=== PATIENT | female | born 1945 | race Caucasian/White ===

== ENCOUNTER → 2019-09-28 14:34 | Outpatient (CLI) | payer MEDICARE, SELFPAY ==
--- NOTE | 2019-09-28 14:43 | RAD_ITS ---
STUDY: X-RAY - RIGHT KNEE REASON FOR EXAM: Female, 74 years old. pain TECHNIQUE: 4 view(s) of the knee. COMPARISON: None. FINDINGS: Normal visualized distal femur. Normal visualized proximal tibia and fibula. Normal proximal tibiofibular articulation. There is mild degenerative arthrosis of the medial femorotibial compartment. There is moderate degenerative arthrosis of the lateral femorotibial compartment with moderate joint space narrowing. Normal patellofemoral articulation. The soft tissue structures are unremarkable. RAD/Knee 4 or More Views IMPRESSION: Bicompartmental osteoarthritis as described. Electronically Signed: Lee Serrato MD at 18:08 EDT Tel , Service support ,
--- NOTE | 2019-09-28 14:43 | RAD_ITS ---
STUDY: X-RAY - LEFT SHOULDER REASON FOR EXAM: Female, 74 years old. pain TECHNIQUE: 4 view(s) of the shoulder. COMPARISON: None. FINDINGS: Normal glenohumeral articulation. Normal acromioclavicular joint. Normal acromion. Narrowing of the acromiohumeral interval implies underlying rotator cuff pathology. Normal humeral head and visualized proximal humerus. The soft tissue structures are unremarkable. Normal visualized pulmonary apex. Remote left rib trauma. RAD/Shoulder min 2 Views IMPRESSION: Narrowing of the acromiohumeral interval implies underlying rotator cuff pathology. Electronically Signed: Lee Serrato MD at 18:09 EDT Tel , Service support ,
--- NOTE | 2019-09-28 14:43 | RAD_ITS ---
STUDY: X-RAY - LEFT KNEE REASON FOR EXAM: Female, 74 years old. pain TECHNIQUE: 4 view(s) of the knee. COMPARISON: None. FINDINGS: Normal visualized distal femur. Normal visualized proximal tibia and fibula. Normal proximal tibiofibular articulation. There is severe degenerative arthrosis of the medial femorotibial compartment with severe joint space narrowing. Normal lateral femorotibial compartment. Normal patellofemoral articulation. The soft tissue structures are unremarkable. RAD/Knee 4 or More Views IMPRESSION: Severe medial compartment osteoarthritis. Electronically Signed: Lee Serrato MD at 18:06 EDT Tel , Service support ,
--- NOTE | 2019-09-28 14:43 | RAD_ITS ---
STUDY: X-RAY - RIGHT SHOULDER REASON FOR EXAM: Female, 74 years old. pain TECHNIQUE: 4 view(s) of the shoulder. COMPARISON: None. FINDINGS: Normal glenohumeral articulation. Normal acromioclavicular joint. Normal acromion. Normal humeral head and visualized proximal humerus. The soft tissue structures are unremarkable. Normal visualized pulmonary apex. RAD/Shoulder min 2 Views IMPRESSION: Normal x-ray examination of the shoulder. Electronically Signed: Lee Serrato MD at 18:07 EDT Tel , Service support ,
[2019-09-28 17:50] LABS: Absolute Lymphocyte Count 2.14 X10^3/uL (0.83-4.51); Absolute Neutrophil Count 3.1 X10^3/uL (2.0-7.7); Basophil# 0.03 X10^3/uL; Basophil% 0.5 % (0-1); Eosinophil# 0.04 X10^3/uL; Eosinophils% 0.7 % (0-5); Hematocrit 38.4 % (37-47); Hemoglobin 12.2 g/dL (12.0-15.0); Lymphocyte # 2.14 X10^3/ul (4.0); Lymphocyte % 36.6 % (19-41); Mean Corp Hgb Conc 31.8 g/dL (32-36); Mean Corpuscular Hgb 29.8 pg (27.0-32.0); Mean Corpuscular Volume 93.9 fL (81-99); Mean Platelet Vol. 11.3 fl (6.2-12.0); Monocyte% 8.5 % (0-10); NRBC Flagged by Analyzer 0 % (0-5); Neutrophil # 3.14 X10^3/uL (2.7-7.7); Neutrophil % 53.7 % (47-70); Platelet Count 209 K/mm3 (150-450); RBC Distribution Width CV 13.1 % (11.6-14.6); RBC Distribution Width SD 45.2 fl (35.1-43.9); Red Blood Count 4.09 M/mm3 (4.2-5.4); White Blood Count 5.9 K/mm3 (4.4-11.0)
[2019-09-28 17:52] LABS: Erythrocyte Sedimentation Rate 9 mm/hr (0-30)
[2019-09-28 18:09] LABS: ALB/GLOB Ratio 1.1 RATIO (0.9-2.4); AST(SGOT) 19 U/L (15-37); Alanine Aminotransfer ALT/SGPT 22 U/L (13-56); Alkaline Phosphatase 96 U/L (45-117); Anion Gap 9 (5-15); BUN 25 mg/dL (7-18); BUN/Creat Ratio 29.7 RATIO (10-20); CRP 2.93 mg/L (0.0-3.0); Calcium,Total 9.2 mg/dL (8.5-10.1); Chloride 103 mmol/L (98-107); Creatinine, Serum 0.84 mg/dL (0.55-1.02); EST Glomerular Filtration Rate 70 mL/min (>60); Est Glom Filt Rate - Afr Amer 84 mL/min (>60); Globulin 3.6 g/dL (2.2-4.2); Glucose 83 mg/dL (74-106); Protein, Total 7.6 g/dL (6.4-8.2); Rheumatoid Factor < 10.0 IU/mL (<15); Sodium Level 138 mmol/L (136-145)
[2019-10-01 12:37] LABS: CCP IgG Antibodies 7 units (0-19)
== END ==
PROVIDERS: Referring Provider Internal Medicine Rheumatology; Visit Provider Internal Medicine Rheumatology
DX: M47.892 Other spondylosis, cervical region (principal); M50.30 Other cervical disc degeneration, unspecified cervical region; M17.0 Bilateral primary osteoarthritis of knee; M21.41 Flat foot [pes planus] (acquired), right foot; I87.2 Venous insufficiency (chronic) (peripheral)
CPT/HCPCS: 36415; 73030; 73564; 80053; 85025; 85652; 86140; 86200; 86431

== ENCOUNTER → 2019-11-29 15:52 | Outpatient (CLI) | payer MEDICARE, SELFPAY ==
--- NOTE | 2019-11-29 15:55 | RAD_ITS ---
STUDY: X-RAY - CERVICAL SPINE REASON FOR EXAM: Female, 74 years old. NECK AND ARM PAIN TECHNIQUE: 5 view(s) of the cervical spine were obtained. COMPARISON: None FINDINGS: Normal anterior atlantoaxial articulation. Normal odontoid process. There is straightening of the normal cervical lordosis. There is multi-level endplate spondylosis. There is multi-level degenerative disc disease with multilevel disc space narrowing. There is multi-level osseous foraminal stenosis. The soft tissue structures are unremarkable. RAD/Cerv Spine 2 or 3 Views IMPRESSION: Multilevel degenerative changes, no acute findings Electronically Signed: Mauricio Oliva MD at 16:57 EDT , Service support ,
== END ==
PROVIDERS: PCP Student in an Organized Health Care Education/Training Program; Referring Provider Anesthesiology Pain Medicine; Visit Provider Anesthesiology Pain Medicine
DX: M54.2 Cervicalgia (principal); M79.603 Pain in arm, unspecified
CPT/HCPCS: 72040

== ENCOUNTER → 2019-12-08 12:45 | Outpatient (CLI) | payer MEDICARE, SELFPAY ==
--- NOTE | 2019-12-08 12:56 | MRI_ITS ---
STUDY: MRI CERVICAL SPINE WITHOUT CONTRAST REASON FOR EXAM: Female, 74 years old. neck pain, BILAT ARM PAIN TECHNIQUE: Standardized fat and water weighted pulse sequences were obtained in the sagittal and axial planes. COMPARISON: 11/29/2019 FINDINGS: Normal foramen magnum and brainstem-cervical cord junction. Normal craniovertebral junction. Normal anterior atlantoaxial articulation. Normal odontoid process. There is straightening of the normal cervical lordosis. Normal vertebral bodies and posterior osseous elements. C2-3: Normal endplates. Normal disc height, signal and morphology. Normal central canal and intervertebral neural foramina. C3-4: Mild left facet hypertrophy. Mild broad disc osteophyte complex asymmetric to the left with left uncovertebral hypertrophy produces mild spinal stenosis and mild left neural foraminal stenosis. C4-5: Normal endplates. Normal disc height, signal and morphology. Normal central canal and intervertebral neural foramina. C5-6: Mild broad disc osteophyte complex asymmetric to the right produces mild spinal stenosis and mild right neural foraminal stenosis. C6-7: Mild broad disc osteophyte complex produces mild spinal stenosis but no neural foraminal stenosis. C7-T1: Normal endplates. Normal disc height, signal and morphology. Normal central canal and intervertebral neural foramina. Normal cervical cord. Normal visualized soft tissue structures. MRI/Spine Cervical (Routine) IMPRESSION: Multilevel degenerative changes, as described above. Electronically Signed: Rm Donovan MD at 15:03 EDT Tel , Service support ,
== END ==
PROVIDERS: PCP Student in an Organized Health Care Education/Training Program; Referring Provider Anesthesiology Pain Medicine; Visit Provider Anesthesiology Pain Medicine
DX: M54.2 Cervicalgia (principal)
CPT/HCPCS: 72141

== ENCOUNTER → 2020-09-06 16:29 | Outpatient (CLI) | payer MEDICARE, SELFPAY ==
--- NOTE | 2020-09-06 16:45 | RAD_ITS ---
STUDY: X-RAY - LEFT KNEE REASON FOR EXAM: Female, 75 years old. KNEE PAIN AND ARTHRITIS TECHNIQUE: 4 view(s) of the knee. COMPARISON: None. FINDINGS: Normal visualized distal femur. Normal visualized proximal tibia and fibula. Normal proximal tibiofibular articulation. There is severe degenerative arthrosis of the medial femorotibial compartment with severe joint space narrowing. There is mild degenerative arthrosis of the lateral femorotibial compartment. There is mild degenerative arthrosis of the patellofemoral articulation. There is a moderate volume joint effusion. The soft tissue structures are unremarkable. RAD/Knee 4 or More Views IMPRESSION: Degenerative arthrosis. Electronically Signed: Rm Donovan MD at 10:18 EDT Tel , Service support ,
== END ==
PROVIDERS: PCP Student in an Organized Health Care Education/Training Program; Referring Provider Anesthesiology Pain Medicine; Visit Provider Anesthesiology Pain Medicine
DX: M25.569 Pain in unspecified knee (principal)
CPT/HCPCS: 73564

== ENCOUNTER 2022-01-09 06:54 | Observation (INO) | payer MEDICARE, SELFPAY ==
--- NOTE | 2021-12-27 21:55 | HP.PCM_ITS ---
History and Physical History and Physical [facility] Patient Name: Sofía Rodriguez : 1945 From:? EDUARDO MCKENZIE PA-C? DATE OF SURGERY:? 01/09/2022 SCHEDULED PROCEDURE:? left reverse total shoulder arthroplasty HISTORY OF PRESENT ILLNESS: Preoperative history and physical exam was performed on December 27, 2021.? This is a 76-year-old female who had a recent injury when she was walking outside in the dark when she stepped in a hole falling injuring her left shoulder.? She was seen at the emergency room and placed in a sling for left humerus fracture.? Patient is right-hand dominant.? Patient had no prior problems with the left shoulder before this injury.? She has increased pain with any movement of the left shoulder.? Pain can reach his high as a 10/10.? Patient does live at home and does her own ADLs.? She does care for herself a majority of the time.? She does have family present helping her out.? She denies any numbness and tingling.? She does report some occasional dizziness.? She does have follow-up visit with the primary care physician Dr. Munson prior to surgery.? She also sees call specialist Dr. Levin.? Patient reports no medical problems but does have listed previous heart valve replacement in 2021.? She also reports following that procedure she did have a DVT in the right lower leg.? She was treated with anticoagulation for several months.? She is no longer on anticoagulation.? She is only taking Tylenol and ibuprofen.? She currently denies any chest pain or shortness of breath.? After discussion with Dr. Maldonado Vegas, the patient does wish to proceed with a left reverse total shoulder arthroplasty. REVIEW OF SYSTEMS: Review Of Systems: Constitutional: Denies change in appetite, fever and weight change. Cardiovasular: Denies chest pain, heart murmur and irregular heartbeat. Respiratory: Denies cough, pneumonia, shortness of breath, tuberculosis and wheezing. Gastrointestinal: Denies constipation, diarrhea, heartburn, nausea, rectal itching, bloody stools and vomiting. Musculoskeletal: Denies leg swelling, pain, trouble walking and weakness. Skin: Denies Raynaud's, history of shingles and tattoo. Neurological: Reports dizziness but denies ambulatory dysfunction, numbness/tingling and tremor. Psychiatric: Denies anxiety, insomnia and stress. Hematologic/Lymphatic: Reports bleeding/bruising tendency, but denies anemia and past transfusion. Reviewed and updated. PAST MEDICAL HISTORY: Advance Care Plan: Other Directive, LIVING WILL Effective Date: 12/24/2021 Other Directive, POA Effective Date: 12/24/2021 Past Medical History: Medical Problems: Arthritis DVT - Right leg DVT May 2021 Accidents: LT Shoulder FX - (12/19/2021) [facility] Surgical Hx: Heart Valve Replacement - (2021) SIMONE/STEFFION--LULA Anesthesia Complications: Can Feel The Work Being Done Assistive Devices: Cane, Dentures, Glasses Reviewed and updated. SOCIAL HISTORY: Social History: Marital: .Occupation: Retired.Work Status: Retired.Hand Dominance: Right- handed. Personal Habits:? Cigarette Use: Never Smoked Cigarettes.Smokeless Tobacco: Never Used Smokeless Tobacco.E-Cigarette Use: Never used.Alcohol: Denies us e.Drug Use: Denies Use.Enjoy Exercising: Daily. Reviewed and updated. VITALS: Ht: 62 Wt: 204lb Wt k.534 BMI: 37.3 BP: 128/82 Pulse: 70 Resp: 16 T: 97.9 T: 36.6C Pain Level: 7 O2SatR: 100 ALLERGIES: No Known Drug Allergy? MEDICATIONS: Aspirin 81 81 mg 1 pill 2x/day by mouth, Ibuprofen 200 mg 2 tablets by mouth for pain as needed PRE-OP EXAM:? General appearance:NORMAL? ? ? Other: Eyes: Conjunctivae and lids: NORMAL? Pupils: ERR Ears, Nose, Mouth, and Throat: NORMAL? Other: Inspection of lips, teeth and gums: NORMAL? ?Other: Neck: Examination of neck: no masses noted. Respiratory: Assessment of respiratory effort: NORMAL? ?Other: ?Auscultation of lungs: clear to auscultation no wheezes, rhonchi or rales. Cardiovascular:? Auscultation of heart: regular rate and rhythm, positive systolic murmur, no gallops or rubs. PHYSICAL EXAMINATION: Patient presents today in a sling for the left upper extremity.? Range of motion was deferred secondary to fracture.? Patient does have tenderness to palpation diffusely throughout the left shoulder.? There is ecchymosis in the axilla/chest wall and left upper extremity.? Sensation was intact to light touch to axillary, radial, median, ulnar nerve distribution.? Motor intact with patient able to make okay sign, cross fingers, thumbs up. IMAGING STUDIES: Previous left shoulder x-rays and CT scan revealed a comminuted 4 part proximal humerus fracture with a split through the humeral head with no lata dislocation of the joint IMPRESSION: 1.? Left shoulder four-part proximal humerus fracture 2.? Previous history of DVT May 2021 3.? Heart valve replacement 2021 PLAN: Dr. Maldonado Vegas did discuss and review with the patient all treatment options including surgical versus nonsurgical options.? Patient does wish to proceed with the above-stated procedure.? Potential risks, benefits, and complications of the procedure were discussed in detail including but not limited to , infection, nerve and blood vessel damage, persistent pain, numbness, tingling, paresthesias, blood clot, pulmonary embolism, and requirement for possible further surgery.? The patient expressed full understanding and has no further questions for the doctor.? Patient does agree to proceed with the above-stated procedure and has signed the surgery consent form. We discussed the current risks associated with COVID 19.? This does include the risk of exposure while in the hospital.? Patient was reassured local hospitals have low infection rates and are taking all necessary precautions to avoid exposure to patients.? In addition, we discussed strategies that can be used to help limit exposure including those that limit the patient's time in the hospital.? Also using strategies to limit the patient's need for continued inpatient services after being discharged from the hospital.? Patient was notified that we will need to comply with any screening or testing the hospital wishes to perform or that surgery may be delayed for any positive results. This dictation was created using voice recognition software. Phonetic and/or grammatical errors may exist. ___? I have re-examined the patient.? There are no clinical changes since date of exam. ___? See progress notes for changes. ___? Dictated on admission Date: ? ? ?Time: Signature:
--- NOTE | 2021-12-31 08:47 | EKG12_ITS ---
Test Reason : PREOP Blood Pressure : / mmHG Vent. Rate : 085 BPM Atrial Rate : 085 BPM P-R Int : 136 ms QRS Dur : 078 ms QT Int : 368 ms P-R-T Axes : 070 005 069 degrees QTc Int : 437 ms Normal sinus rhythm Left ventricular hypertrophy with repolarization abnormality Abnormal ECG Confirmed by AMY ESCOTO, JACE ([id number]), newspaper or periodical editor BAKARI PARKS ([id number]) on 01/01/2022 8:07:10 AM Referred By: Maldonado Vegas Confirmed By:JACE REYES MD
[2021-12-31 09:52] LABS: Absolute Lymphocyte Count 1.75 X10^3/uL (0.83-4.51); Absolute Neutrophil Count 3.4 X10^3/uL (2.0-7.7); Basophil# 0.02 X10^3/uL; Basophil% 0.3 % (0-1); Eosinophil# 0.13 X10^3/uL; Eosinophils% 2.2 % (0-5); Hematocrit 34.4 % (37-47); Hemoglobin 11.2 g/dL (12.0-15.0); Lymphocyte # 1.75 X10^3/ul (0.83-4.51); Lymphocyte % 29.7 % (19-41); Mean Corp Hgb Conc 32.6 g/dL (32-36); Mean Corpuscular Hgb 29.9 pg (27.0-32.0); Mean Corpuscular Volume 91.7 fL (81-99); Mean Platelet Vol. 9.9 fl (6.2-12.0); Monocyte# 0.55 X10^3/uL; Monocyte% 9.3 % (0-10); NRBC Flagged by Analyzer 0 % (0-5); Neutrophil # 3.43 X10^3/uL (2.7-7.7); Neutrophil % 58.3 % (47-70); Platelet Count 223 K/mm3 (150-450); RBC Distribution Width CV 13.2 % (11.6-14.6); RBC Distribution Width SD 44.2 fl (35.1-43.9); Red Blood Count 3.75 M/mm3 (4.2-5.4); White Blood Count 5.9 K/mm3 (4.4-11.0)
[2021-12-31 10:32] LABS: Albumin, Serum 3.4 g/dL (3.2-5.0); Anion Gap 7 (5-15); BUN 21 mg/dL (7-18); BUN/Creat Ratio 26.5 RATIO (10-20); Chloride 107 mmol/L (98-107); Creatinine, Serum 0.79 mg/dL (0.55-1.02); EST Glomerular Filtration Rate 75 mL/min (>60); Est Glom Filt Rate - Afr Amer 90 mL/min (>60); Glucose 99 mg/dL (74-106); Sodium Level 141 mmol/L (136-145)
[2021-12-31 10:34] LABS: Magnesium 2.2 mg/dL (1.6-2.6)
[2022-01-09] VITALS (13 sets, daily range): BP systolic 129–183; BP diastolic 52–89; PULSE 61–98; RESP 12–18; TEMP 36.4–36.5; O2SAT 4–100; BMI 38.2; BMI 38.3; BMI 38.5
[2022-01-09 06:36] LABS: Bedside Glucose 79 mg/dL (74-106)
[2022-01-09] MEDS: Lactated Ringers 1,000 ML 999 ML IV (06:47)
[2022-01-09] MEDS: Acetaminophen 500 MG Tablet 1000 MG PO ×3 (06:48→22:29)
[2022-01-09] MEDS: Gabapentin 600 MG Tablet PO (06:48)
--- NOTE | 2022-01-09 06:57 | OP.PCM_ITS ---
Report of Operation Date of Procedure: 01/09/22 Pre-Operative Diagnosis: Left four-part proximal humerus fracture Post-Operative Diagnosis: Left four-part proximal humerus fracture Surgery/Procedure Performed:: Left reverse total shoulder replacement Description of Surgical Findings:: Stable shoulder Surgeon: Maldonado Vegas make up operator: Kel Franklin Type of Anesthesia: General Anesthesiologist: Zack Santos Special Medications: 2 g Ancef, 1 g TXA at incision, 1 g TXA closure, 10 mg Decadron, joint cocktail (5 mg Duramorph, 30 mL of 0.5% Ropivicaine, 1000 units of epinephrine, 30 mg of Toradol), 1 g vancomycin at incision Specimen's removed: Bony cuts Estimated Blood Loss (mL): 200 Fluids Replaced: 700 ml Description of Procedure: Components used 1. Bonifacio reunion glenoid baseplate 2. [place] reunion 32 mm, 6mm Glenosphere 3. [place] reunion 32mm, 4mm humeral liner 4. Bon[place]acio reunion reverse TSA humeral adapter tray 4mm 5. [place] reunion humeral stem fracture stem 8mm size Brief history/Operative indications: 76 yo f with history of left shoulder pain and comminuted proximal humerus fracture with head split. Patient failed conservative measures as mentioned in the H&P. After discussion of risk and benefits of reverse total shoulder replacement including but not limited to blood loss, DVTs, PEs, nerve vessel damage, infection, general risk of anesthesia including loss of life, instability and stiffness patient demonstrating understanding wish to proceed was able to sign informed consent. Medical clearance was obtained. Procedure: On the date of the procedure, patient's left upper extremity was marked in the preoperative area. Patient was taken back to the operating room where they were placed on the table in the supine position. Anesthesia assumed control of the C-spine and airway, then administered anesthetic. All bony prominences were identified well-padded, the head was secured and the patient was placed in the beachchair position at about 35? inclination. Anesthesia remained in control of the C-spine airway throughout the remainder of the procedure. Patient was then appropriately fastened to the table and the left upper extremity was prepped in a sterile fashion. The surgeons then scrubbed. Upon reentering the room, the left upper extremity was draped in a sterile fashion and the incision was marked out. Timeout was called, everyone agreed upon the side, the site, the procedure to be performed, patient identity and antibiotics given. Incision was taken down through skin and subcutaneous tissue, fat down to fascia. The stripe of the deltopectoral interval and cephalic vein were identified and blunt dissection was used to retract the deltoid. The cephalic vein was retracted laterally. Clavipectoral fascia was then incised and a cobra retractor was placed in the wound. Once we got down to the humerus the fracture fragments were identified. There was partial healing already of the greater tuberosity fragment with no rotator cuff attachments due to previous massive rotator cuff tear. There was a good attachment to the lesser tuberosity and the subscapularis. This was tagged and safe. We released down the anterior portion of the humeral head and a chu elevator was used to release the inferior portion of the humeral head. The arm was externally rotated and the shoulder was dislocated. The humeral head was then cut at its natural retroversion. Once his humeral head cut was made humerus was retracted out of the way and the glenoid was exposed. After exposing the glenoid, the labrum and the remaining proximal biceps were debrided. At this time we are able to view the entire outer edge of the glenoid. A central pin was placed we sequentially reamed over this central pin to 32mm. Once this was completed the central screw was measured and found to be. The glenoid baseplate was screwed into place. Wound was closely irrigated out with normal saline we then drilled sequentially for 2 screws. Screws were placed superiorly and inferiorly and tightened down the screws. Once the screws were appropriately tightened into place the glenoid baseplate was compressed against the exposed subchondral bone. A 32mm glenosphere was impacted into place engaging the Moreland taper. Attention was then turned towards the humerus. The humerus was again externally rotated exposing the proximal portion of the humerus. Central canal finder was then used to open up the canal. We reamed to a 12mm reamer. We then broached to a 9mm standard stem. The standard stem was replaced with a 8 mm fracture stem trial. We trialed the 4mm liner, with the 2mm humeral baseplate. We obtained an adequate reduction at this time with a nice stable shoulder. Good internal rotation to the gluteus, forward elevation to 140?, external rotation to 20?. Final components were then assembled on the back table, trials were removed and the wound was copiously irrigated with normal saline after dislocating the shoulder. At this point we attempted to press-fit the fracture stem which did not have a good press-fit. Based on this we mixed cement. We cemented the canal and press-fit it proximally. Two #5 FiberWire's were placed in the fracture stem holes. We then retrialed with a 4 mm poly and 4 mm baseplate given its appropriate stability and soft tissue tension. The trial plate was removed and final components were opened and put together on the back table. Trunnion was cleaned and baseplate was impacted into place shoulder was then reduced and found to be stable with good range of motion. Lesser tuberos ity and subscapularis tendon were repaired using the #5 FiberWire's placed through the fracture holes in the stem.. The wound was with chlorhexidine solution then copiously irrigated out with a 1 L normal saline lavage. The deltopectoral fascia was then closed using #1 Vicryl skin was closed using 2-0 Vicryl interrupted sutures and final skin closure was done with 3-0 Monocryl. Steri-Strips are placed for final skin closure. Sterile dressing was placed patient was then placed in a sling and awakened by anesthesia. Patient was then transferred to the PACU for recovery. Postoperative plan: Patient will be admitted to the hospital overnight. They will get physical therapy starting in 2 weeks with normal postoperative regimen. Patient will be placed on Eliquis 2.5 mg twice daily for DVT prophylaxis . Patient has a history of VTE and family history of adverse reaction to Xarelto and wished to avoid use of Xarelto. the first postoperative appointment will be in 2 weeks for wound check and initiation of phase 1 physical therapy. During the course of the procedure the physician physical laboratory assistant played a vital role. His intimate knowledge of my steps in the procedure aided in safe and expedient completion of the procedure. The PA played a vital rolls in positioning particularly in obtaining the appropriate beach chair position and securing the patient's body and head to the table. The PA was also vital in the retraction of soft tissues during the exposure and especially the glenoid work as this is a vital part of the procedure to prevent neurovascular damage. the PA was also vital and protecting soft tissues during times of bony cuts and reaming. He also played a vital role in closure with my direct supervision. The PA was also important during reduction and dislocation of the joint and trials intraoperatively. Complications No intraoperative complication Admit VTE Documentation VTE Present on Admission: No VTE Mechan Device Prophylaxis: SCD's VTE Pharm Prophylaxis ordered?: Yes
[2022-01-09] MEDS: Cefazolin 2 GM in 0.9% Normal Saline 100 ML IV (07:25)
[2022-01-09] MEDS: Lactated Ringers 1,000 ML 125 ML IV ×2 (07:30→11:51)
--- NOTE | 2022-01-09 07:30 | SHO_PTH ---
PATIENT: SUSAN MOSQUEDA LOC: [facility] U#:[id number] AGE/SX: 76/F ROOM: MA312 RE01/09/[address]: Dr. Maldonado Vegas MD : 1945 BED: 1 DIS: 01/10/2022 SPEC #: [id number] RECD: 01/09/22 12:38 STATUS: DL BOOTHEChris #: [id number] YASMIN: 01/09/22 07:[address]: Maldonado Vegas DEPT: SURGICAL PATHOLOGY RECD BY: Miriam Bear ENTERED: 01/10/22 08:21 SP TYPE: HUMERUS OTHR DR: DO Dr. Lucina Morris DO Tissues: Humerus, NOS Procedures: Decalcification bone/plaque Surgery Specimen Level IV HEADER OPERATION: ERAS, total shoulder replacement PRE-OP DIAGNOSIS: Left shoulder four-part proximal humerus fracture TISSUE SUBMITTED: Left humeral head MICROSCOPIC DIAGNOSIS Left humeral head fracture, total shoulder replacement: Consistent with organizing fracture sumeet. AM:sasha 01/16/2022 MICROSCOPIC DESCRIPTION Slides are reviewed. GROSS DESCRIPTION Received in fixative is one container labeled with the patient's name and designated left humeral head. The specimen consists of multiple irregular fragments of branham-yellow bone that in aggregate measure 10 x 8 x 2.7 cm. The articular surface is grossly unremarkable. The nonarticular surface is hemorrhagic and irregular and consistent with fracture. Blast Furnace Keeper sections are submitted in two cassettes after decalcification. / AM:sasha 01/10/2022 TC:5 CPT: 90968, 85704
[2022-01-09] MEDS: dexAMETHasone 10 MG/ML Vial IV (07:45)
--- NOTE | 2022-01-09 10:18 | RAD_ITS ---
STUDY: X-RAY - LEFT SHOULDER REASON FOR EXAM: Female, 76 years old. Post op -- AP and Lateral X-Ray of operative shoulder in PACU TECHNIQUE: 2 view(s) of the shoulder. COMPARISON: Comparison is made with prior examination dated 09/28/2019. FINDINGS: The patient is status post left total reverse shoulder replacement. There is good alignment. Postoperative soft tissue changes. RAD/Shoulder min 2 Views IMPRESSION: Status post left total reverse shoulder replacement. There is good alignment. Postoperative soft tissue changes. Electronically Signed: Ronnie Wall MD at 10:38 EDT ,
--- NOTE | 2022-01-09 13:28 | PN.HOSP_ITS ---
Documented by User: Johana Bains NP, SOCIAL SERVICES ANALYST-C 01/09/22 13:42 Subjective Subjective Patient seen and examined. Underwent left reverse total shoulder arthroplasty by Dr. Vegas. Patient resting comfortably in bed. Daughter at bedside. Objective Data Objective Data Vital Signs: Vital Signs Temp Pulse Resp BP Pulse Ox O2 Del Method O2 Flow Rate 97.7 F L 81 16 183/89 H 100 High Flow 4 01/09/22 11:56 01/09/22 11:56 01/09/22 11:56 01/09/22 11:56 01/09/22 11:56 01/09/22 11:56 01/09/22 11:03 Oxygen Flow Rate (L/min) 4 Oxygen Delivery Method High Flow Weight: 209 lb 7.026 oz Body Mass Index (BMI) 38.5 Intake & Output: Intake and Output for Last 24 Hours 01/07/22 01/08/22 01/09/22 23:59 23:59 23:59 Intake Total 1875.75 / 1875.75 Balance 1875.75 / 1875.75 Lab / Micro Data Result Diagrams: 12/31/21 09:00 12/31/21 09:00 Labs: Laboratory Results - last 24 hr 01/09/22 06:08: POC Glucose 79 Micro: Microbiology 12/31/21 09:00 Swab (Method) Nasal Screen MRSA/MSSA - Final Radiography Diagnostic Testing: Radiology Impression Shoulder X-Ray 01/09/22 10:18 IMPRESSION: Status post left total reverse shoulder replacement. There is good alignment. Postoperative soft tissue changes. Electronically Signed: Ronnie Wall MD at 10:38 EDT , Physical Exam Const alert, oriented x3 and no apparent distress Orientation / Consciousness: awake, oriented to person, oriented to place and oriented to time HEENT normocephalic and moist oral mucous membranes Eyes PERRL, EOMs intact bilaterally and conjunctivae normal Neck no lymphadenopathy Resp normal respiratory effort and clear to auscultation bilaterally Cardio regular rate, regular rhythm and no murmurs Peripheral Pulses: pulses 2+ throughout GI normal to inspection, nondistended, normoactive bowel sounds, non-tender and non-distended Extremity normal to inspection Skin no rashes or lesions noted Lesions: no lesions Rashes: no rashes Trauma: no lacerations or abrasions Neuro CN's II-XII intact bilaterally, no focal motor deficits, no sensory deficits noted and deep tendon reflexes 2+ bilaterally Psych mental status grossly normal and affect normal Assessment & Plan Assessment/Plan (1) S/p reverse total shoulder arthroplasty: PLAN: Plan 1. Status post left reverse total shoulder arthroplasty-management per Ortho. PT/OT. Eliquis for DVT prophylaxis. As needed pain regimen. 2. History of aortic valve replacement-May 2021. 3. History of DVT-following valve replacement. No longer on anticoagulation. DVT prophylaxis-Eliquis This patient was seen by KAMILA Aviles under the supervision of Dr. Caballero. Documented by User: Dr. Lucina Caballero DO 01/09/22 15:17 Subjective Subjective This patient was seen in conjunction with Johana Bains NP. The following represents my independent history and physical examination. Please see below for addendum the above. Patient is a 76-year-old female who had a recent injury after a fall when she stepped into a hole. She injured her left shoulder at that time and was seen in the emergency department and placed in a sling for her left humeral fracture. Prior to this injury she had no issues. She unfortunately developed increasing pain with any movement of the shoulder and was having difficulty caring for herself and her family. Her only medical history includes aortic stenosis for which she had a bioprosthetic valve replacement in 2021 as well as postoperative DVT in the right leg. She was treated with anticoagulation for several months and has had no recurrence. Anticoagulation has since been discontinued. She was admitted for a left reverse total shoulder arthroplasty which was performed by Dr. Vegas on 01/09/2022. She was seen in the postoperative period on the medical floor and feeling well. A block was done at the time of surgery so the patient was having no pain at the time of my evaluation and other than being sleepy she was feeling well. Daughter was at the bedside at the time of my exam. . Objective Data Lab / Micro Data Result Diagrams: 12/31/21 09:00 12/31/21 09:00 Physical Exam Const alert, oriented x3, no apparent distress, healthy appearing and well nourished Constitutional Narrative: Obese, older, white female, lying in bed, appears comfortable, ice pack on left shoulder, nontoxic, family at bedside HEENT head/scalp atraumatic and moist oral mucous membranes HEENT Narrative: Mallampati 3, no thrush Head and Scalp: normocephalic Resp normal respiratory effort, no retractions, no use of accessory muscles and clear to auscultation bilaterally Auscultation: Negative for crackles, rales, rhonchi or wheezes Cardio regular rate, regular rhythm, S1 normal heart sound, S2 normal heart sound, no murmurs, no rub, no gallops and no clicks GI normal to inspection, nondistended, normoactive bowel sounds, soft to palpation and non-tender Extremity no clubbing, cyanosis or edema Extremity Narrative: Left upper extremity in postoperative sling with polar ice over left shoulder Skin Skin Narrative: Postoperative dressing intact left upper extremity with no signs of drainage Neuro oriented x3, CN's II-XII intact bilaterally and no focal motor deficits Neuro Narrative: Unable to move left upper extremity-postoperative but otherwise moves all extremities symmetrically Speech: speech normal Psych affect normal Psych Narrative: Very pleasant and appropriately interactive Assessment & Plan Assessment/Plan (1) S/p reverse total shoulder arthroplasty: PLAN: Plan Assessment: Posttraumatic arthritis left shoulder Postop day 0 left reverse total shoulder arthroplasty History of aortic valve replacement History of DVT Mild preoperative anemia with hemoglobin of 11.12 Plan: -Shoulder management per primary -Continue Eliquis for DVT prophylaxis per primary -Repeat CBC in the a.m. -Anticipate discharge in the next 24 hours Charges/Coding Visit Charges OBSV E&M: 52200 Initial observation care L2
[2022-01-09] MEDS: Cefazolin 1 GM/50 ML BAG IV (15:45)
[2022-01-09] MEDS: Senna/Docusate Sodium 1 Tablet 2 TABLET PO (22:29)
[2022-01-10] VITALS: BP 125/48; PULSE 72; RESP 14; TEMP 37.2; O2SAT 93
[2022-01-10] MEDS: Cefazolin 1 GM/50 ML BAG IV (00:19)
[2022-01-10] MEDS: 0.9% Saline Lock 10 ML Syringe IV ×2 (00:19→09:34)
[2022-01-10] MEDS: Morphine 2 MG/ML Syringe IV ×2 (00:20→09:34)
[2022-01-10 03:56] VITALS: BMI 38.3
[2022-01-10 04:00] VITALS: BP 134/48; PULSE 78; RESP 16; TEMP 36.9; O2SAT 94
[2022-01-10] MEDS: Acetaminophen 500 MG Tablet 1000 MG PO ×2 (05:30→15:06)
[2022-01-10 06:48] LABS: Hematocrit 29.4 % (37-47); Hemoglobin 9.7 g/dL (12.0-15.0); Mean Corpuscular Hgb 29.8 pg (27.0-32.0); Mean Corpuscular Volume 90.5 fL (81-99); Mean Platelet Vol. 10.4 fl (6.2-12.0); Platelet Count 219 K/mm3 (150-450); RBC Distribution Width CV 13.7 % (11.6-14.6); RBC Distribution Width SD 45.3 fl (35.1-43.9); Red Blood Count 3.25 M/mm3 (4.2-5.4); White Blood Count 8.2 K/mm3 (4.4-11.0)
[2022-01-10 07:06] LABS: Anion Gap 5 (5-15); BUN 19 mg/dL (7-18); BUN/Creat Ratio 21.1 RATIO (10-20); Calcium,Total 8.4 mg/dL (8.5-10.1); Chloride 109 mmol/L (98-107); EST Glomerular Filtration Rate 64 mL/min (>60); Est Glom Filt Rate - Afr Amer 78 mL/min (>60); Estimated Creatinine Clearance 38.87 ml/min; Glucose 101 mg/dL (74-106); Potassium 4.2 mmol/L (3.5-5.1); Sodium Level 140 mmol/L (136-145)
[2022-01-10 07:50] VITALS: O2SAT 93
[2022-01-10 07:56] VITALS: BMI 38.3
--- NOTE | 2022-01-10 09:30 | CASEMGMT ---
YVETTE ALANIS Assessment: Face to face for initial transition planning/care coordination assessment. YVETTE ALANIS introduced self and role at [facility], pt voices understanding and consents to assessment. Pt is A&O x4 and sitting up in chair in no distress. Dtr Shanta at bedside. Care providers, pharmacy, and demographics verified/updated. Admitting Dx: Left total shoulder reverse PCP:Jeimy Specialists:leandro Vegas; Ollie, cardio Preferred Pharmacy: [facility] Insurance: [facility] Prescription Benefit: yes LW/HPOA: Pt has LW/DPOA on file at [facility]. Her DPOA is her dtr Michelle Bernal. She is aware this is not on file at [facility] and she may bring in to be scanned into her chart. LNOK: Shanta Steve, dtjose Living Arrangements: Pt lives with dtr Inga in a two story house with 4 steps to enter with a rail. Pt reports she is I in ADL's and denies concerns at home. Transportation: Pt does not drive. Pt dtrs transport her to medical appts. DME/HHC/SNF: Pt has a straight cane and walk in shower at home. Pt denies hx of HHC or SNF stays. Pt states no concerns with going home at time of dc. States her dtr Inga is able to assist pt at home. Shanta also lives a short distance and will check on patient daily. PA spoke with pt and dtr regarding HHC vs outpt therapy and will discuss further at follow up appt. Pt states no further concerns/needs. CM to follow. Advised pt to ask CM if any further question/concerns/needs arise, voices understanding. Pt Goal: Home Plan: Home
--- NOTE | 2022-01-10 09:38 | CASEMGMT ---
YVETTE CM into pt room to discuss BROWN form. Explained BROWN form to patient and patient verbalized understanding. Pt dtr signed BROWN form per pt request. Filed original in patient chart and provided a copy to patient. Patient denies further needs.
[2022-01-10] MEDS: Senna/Docusate Sodium 1 Tablet 2 TABLET PO (09:43)
[2022-01-10] MEDS: Famotidine 20 MG Tablet PO (09:43)
[2022-01-10] MEDS: APIXABAN 2.5 MG TABLET PO (09:44)
[2022-01-10] MEDS: Aspirin E.C. 81 MG Tablet PO (09:44)
[2022-01-10] MEDS: Ensure Surgery 237 ML LIQUID PO (09:45)
[2022-01-10 10:05] VITALS: BP 114/44; PULSE 78; RESP 16; TEMP 36.9; O2SAT 94
--- NOTE | 2022-01-10 10:43 | PN.ORTHO_ITS ---
Subjective Subjective The patient was sitting in bedside chair upon examination with her daughter present. Patient denies any chest pain, shortness of breath, dizziness, lightheadedness, nausea or vomiting, or calf pain. Patient states she is having more pain right now. I do feel the block is worn off. She has only had Tylenol. Patient did get IV pain medication which was very helpful. Discussed with the family pain medications postoperatively and trying to stay ahead of pain and not let it get out of control. I explained to the patient that sometimes Tylenol postoperatively is not enough and she can use the narcotic for breakthrough pain. She did voice understanding agreement. Objective Data Objective Data Vital Signs: Vital Signs Temp Pulse Resp BP Pulse Ox O2 Del Method O2 Flow Rate 98.5 F 78 16 114/44 L 94 Room Air 4 01/10/22 10:05 01/10/22 10:05 01/10/22 10:05 01/10/22 10:05 01/10/22 10:05 01/10/22 10:05 01/09/22 15:56 Oxygen Flow Rate (L/min) 4 Oxygen Delivery Method Room Air Weight: 95 kg Body Mass Index (BMI) 38.5 Intake & Output: Intake and Output for Last 24 Hours 01/08/22 01/09/22 01/10/22 23:59 23:59 23:59 Intake Total 3815.75 / 3815.75 50 / 50 Output Total Balance 3815.75 / 3815.75 40 / 40 Lab / Micro Data Result Diagrams: 01/10/22 05:15 01/10/22 05:15 Labs: Laboratory Results - last 24 hr 01/10/22 05:15: WBC 8.2, RBC 3.25 L, Hgb 9.7 L, Hct 29.4 L, MCV 90.5, MCH 29.8, MCHC 33.0, RDW Std Deviation 45.3 H, RDW Coeff of Ijeoma 13.7, Plt Count 219, MPV 10.4 01/10/22 05:15: Sodium 140, Potassium 4.2, Chloride 109 H, Carbon Dioxide 26.0, Anion Gap 5, BUN 19 H, Creatinine 0.90, Estim Creat Clear Calc 38.87, Est GFR (MDRD) Af Amer 78, Est GFR (MDRD) Non-Af 64, BUN/Creatinine Ratio 21.1 H, Glucose 101, Calcium 8.4 L Micro: Microbiology 12/31/21 09:00 Swab (Method) Nasal Screen MRSA/MSSA - Final Physical Exam Narrative Vital signs stable, afebrile Dressing is clean, dry, intact Ultra-sling fitting appropriately Sensation intact to axillary, radial, median, and ulnar distribution Motor intact to AIN, PIN, and ulnar nerve Const alert, oriented x3 and no apparent distress Assessment & Plan Assessment/Plan (1) S/p reverse total shoulder arthroplasty: PLAN: 1. S/P left reverse total shoulder arthroplasty secondary to four-part proximal humerus fracture POD #1 2. Continue Pain Medications: Tylenol and oxycodone 3. DVT Prophylaxis: Eliquis 2.5 mg twice daily for 2 weeks postoperatively. Patient has had previous DVT in May 2021 4. PT/OT: Continue with UltraSling at all times except to come out for range of motion exercises of the elbow and pendulum exercise 3 times daily. No range of motion of the postoperative shoulder until outpatient physical therapy begins. Outpatient physical therapy will begin 2 weeks postoperatively after follow-up with [facility] with x-rays and incision check. 5. H & H: 9.7/29.4, asymptomatic. Acute on chronic and postoperative anemia secondary to acute blood loss from surgery without any intra operative comp lications. Patient's daughter states she does not tolerate iron supplements well. They have tried other herbals and is currently working with the primary care physician. I recommend follow-up with a primary care physician in 1 to 2 weeks for repeat lab work and continued management of her anemia. They voiced understanding agreement. 6. Continue postoperative medical management per medicine 7. Encouraged Incentive Spirometry 8. Disposition: Plan will be for probable discharge home today as long as pain is well controlled, tolerates therapy and medically stable. Patient was having increased pain this morning but I do feel the block has worn off. She did get IV pain medications which was very helpful. They would like their prescriptions E scribed to [facility]. She has outpatient physical therapy established and will follow per postop instructions. Postoperative therapy exercises were discussed today. She will contact her office with any concerns or questions following discharge. I have reviewed the [place] Automated Rx Reporting System (OARRS) report for this patient for refill pattern and other prescriber involvement as part of the appropriate surveillance for the provision of acute and chronic controlled medications. The report was requested and reviewed on the date of this entry and was considered in the prescribing process. This dictation was created using voice recognition software. Phonetic and/or grammatical errors may exist.
--- NOTE | 2022-01-10 10:48 | DCINST_ITS ---
Discharge Instructions Diet Discharge Diet: No restrictions Activity Discharge Activity: May Not Drive (No driving for 6 weeks postoperatively while wearing UltraSling) May shower in (days): 1 (Dressing must be intact to skin. Turn dressing away from water.) Ice area for (Minutes): 20 (Every 1-2 hours while awake[address] Please place barrier between skin and ice pack.) Weight Bearing Status: No weight bearing (Postoperative upper extremity) Additional Activity Instructions:: Continue with UltraSling at all times. Please come out of UltraSling 3 times daily working on elbow range of motion and pendulum exercises. No range of motion of postoperative shoulder. Will begin outpatient physical therapy after 2-week scheduled follow-up. Dressing / Incision Call your doctor if your incision/area has: Continuous Slow Oozing, Sudden Increased Bleeding, Increased Pain/ Swelling, Increased Redness and Foul Smelling Discharge Call your doctor if you observe: Fever of 101 or Higher, Shortness of breath, Chest pain and Uncontrolled pain Remove Dressing in: 4 days (Okay to remove dressing on January 14, 2022) Additional Dressing/Incision Instructions:: Follow [facility] Post-op Instructions. Once postoperative dressing has been removed only use gentle soap and water over the incision. Do not use any ointments, Neosporin, salves, alcohol pads over the incision for 6 weeks postoperatively. Do not submerge underwater for 6 weeks postoperatively. Do NOT use alcohol with narcotic pain medication. Do NOT make important decisions while taking narcotic medication. If you have problems with taking your medication (rash, itching, nausea, etc.) call the office at once. Follow Up Care Test Results: Test results from this visit will be discussed in further detail at your follow- up appointment, if applicable. Discharge Plan Admission Admit Date/Time: 01/09/22 06:54 Attending Provider: Maldonado Vegas Primary Care Provider: Demetri Munson Consulting Providers: Lucina Caballero Discharge Orders/Prescriptions Prescriptions: New Eliquis 2.5 mg Tablet 2.5 mg PO BID 13 Days Qty: 26 0RF oxycodone 5 mg Tablet 5 mg PO Q4H PRN PRN (Reason: Pain Score 4-10) 5 Days Qty: 36 0RF sennosides-docusate sodium [Stool Softener-Stimulant Laxat] 8.6-50 mg Tablet 2 tab PO BID Qty: 20 0RF Rx Instructions: Take until first bowel movement, then as needed Continued acetaminophen 325 mg Tablet 325 mg PO Q6H PRN (Reason: Pain) aspirin 81 mg tablet,delayed release (DR/EC) 81 mg PO DAILY Label Comments: TAKE 1 TABLET BY MOUTH ONCE DAILY garlic 1 mg Capsule 1 mg PO DAILY red yeast rice 600 mg Tablet 600 mg PO DAILY Rx Instructions: give with meal/snack Referrals / Follow Up: Physical,Therapy [Other] - 01/25/22 10:30 am Demetri Munson DO [Primary Care Provider] - Kel Franklin PA-C [Med Staff - [facility]] - 01/25/22 9:45 am Disposition Disposition (needs filled in before D/C Order can be placed): Home, Self Care
--- NOTE | 2022-01-10 11:38 | CASEMGMT ---
YVETTE ALANIS NOTE: Pt being discharged. YVETTE ALANIS to room to talk w/pt and dtr's who are at bedside. Pt sleeping soundly in recliner chair. Dtr's made aware pt will be going home on Eliquis BID x 13 days. This YVETTE ALANIS had called [facility] for tello check on Eliquis and cost is $19.50. Dtr's made aware of cost, Eliquis savings card, and that the card can only be used once in a life-time. They stated pt has been on Eliquis in the past and they are not aware of any saving card being applied and the cost was very high at that time. Dtr's state they will go ahead and take the savings card but they may not use it for this rx in case pt would need to go on it again in the future and the cost may be higher. Card provided to them at this time. Per JESSEE Begum, pt to f/u with PCP w/in 1-2 weeks to f/u re: anemia. Dtr's made aware of this and they stated okay for YVETTE ALANIS to schedule this. YVETTE ALANIS placed call to Dr Munson's office. Appt scheduled for Jan 17 @ 1 PM. YVETTE ALANIS to room to inform dtr's of appt date/time, but they have left the room for lunch. Appt info placed in discharge plan and will be given to pt @ discharge. Gaurav MARTI RN, CM
--- NOTE | 2022-01-10 11:55 | PCM.PN.HOSP ---
Subjective Subjective Patient is sitting up in a chair and reporting that she is in considerable amount of more pain today than yesterday as her nerve block has worn off at this point. She has not yet received pain medication I discussed with nursing staff they are in the process of getting her some medication for pain relief. Plan is still for her to go to discharge later today. Objective Data Objective Data Vital Signs: Vital Signs Temp Pulse Resp BP Pulse Ox O2 Del Method O2 Flow Rate 98.5 F 78 16 114/44 L 94 Room Air 4 01/10/22 10:05 01/10/22 10:05 01/10/22 10:05 01/10/22 10:05 01/10/22 10:05 01/10/22 10:05 01/09/22 15:56 Oxygen Flow Rate (L/min) 4 Oxygen Delivery Method Room Air Weight: 95 kg Body Mass Index (BMI) 38.5 Intake & Output: Intake and Output for Last 24 Hours 01/08/22 01/09/22 01/10/22 23:59 23:59 23:59 Intake Total 3815.75 / 3815.75 50 / 50 Output Total Balance 3815.75 / 3815.75 40 / 40 Lab / Micro Data Result Diagrams: 01/10/22 05:15 01/10/22 05:15 Labs: Laboratory Results - last 24 hr 01/10/22 05:15: WBC 8.2, RBC 3.25 L, Hgb 9.7 L, Hct 29.4 L, MCV 90.5, MCH 29.8, MCHC 33.0, RDW Std Deviation 45.3 H, RDW Coeff of Ijeoma 13.7, Plt Count 219, MPV 10.4 01/10/22 05:15: Sodium 140, Potassium 4.2, Chloride 109 H, Carbon Dioxide 26.0, Anion Gap 5, BUN 19 H, Creatinine 0.90, Estim Creat Clear Calc 38.87, Est GFR (MDRD) Af Amer 78, Est GFR (MDRD) Non-Af 64, BUN/Creatinine Ratio 21.1 H, Glucose 101, Calcium 8.4 L Micro: Microbiology 12/31/21 09:00 Swab (Method) Nasal Screen MRSA/MSSA - Final Physical Exam Const alert, oriented x3, no apparent distress, healthy appearing and well nourished Constitutional Narrative: Obese, older, white female, chair, appears somewhat uncomfortable due to pain, nontoxic Orientation / Consciousness: awake, oriented to person, oriented to place and oriented to time HEENT normocephalic, head/scalp atraumatic and moist oral mucous membranes Eyes PERRL, EOMs intact bilaterally and conjunctivae normal Neck no lymphadenopathy Resp normal respiratory effort, no retractions, no use of accessory muscles and clear to auscultation bilaterally Auscultation: Negative for crackles, rales, rhonchi or wheezes Cardio regular rate, regular rhythm, S1 normal heart sound, S2 normal heart sound, no murmurs, no rub, no gallops and no clicks GI normal to inspection, nondistended, normoactive bowel sounds, soft to palpation, non-tender and non-distended Extremity normal to inspection and no clubbing, cyanosis or edema Extremity Narrative: Left upper extremity in postoperative sling Neuro oriented x3, CN's II-XII intact bilaterally, no focal motor deficits, no sensory deficits noted and deep tendon reflexes 2+ bilaterally Neuro Narrative: Unable to move left upper extremity-postoperative but otherwise moves all extremities symmetrically Speech: speech normal Psych affect normal Psych Narrative: Very pleasant and appropriately interactive Assessment & Plan Assessment/Plan (1) S/p reverse total shoulder arthroplasty: PLAN: Plan Assessment: Posttraumatic arthritis left shoulder Postop day 1 left reverse total shoulder arthroplasty History of aortic valve replacement History of DVT Mild preoperative anemia with hemoglobin of 11.12 Plan: -Shoulder management per primary -Continue Eliquis for DVT prophylaxis per primary -Hemoglobin has dropped some but suspect this is dilutional -If persistent recommend outpatient follow-up -Niccoli stable for discharge once deemed appropriate by primary service Charges/Coding Visit Charges OBSV E&M: 60400 Subsequent observation care L2
[2022-01-10 11:56] VITALS: BP 121/35; PULSE 76; RESP 18; TEMP 36.9; O2SAT 96; BMI 38.3
[2022-01-10] MEDS: oxyCODONE 5 MG Tablet 2.5 MG PO (13:08)
--- NOTE | 2022-01-10 14:14 | CHAPLAIN ---
Type of Pastoral Visit _x__ Initial Visit ___ Follow-up Visit ___ On-call Visit ___ General Patient Visit ___ Spiritual Assessment ___ Family Conference ___ Bereavement ___ Rapid Response ___ Code Blue ___ Other (describe below) Pastoral Care Referral From _x__ Patient ___ Family ___ Nurse ___ Physician ___ Lineman Apprentice ___ Director Of Product Management ___ Other (describe below) Sacrament/Intervention _x__ Active listening ___ Anointing ___ Lutheran ___ Bereavement ___ Communion ___ Tanika exploration ___ ___ Life review _x__ Prayer ___ Reconciliation ___ Sacrament of Sick ___ Supportive presence ___ Wedding ___ Other (describe below) Pastoral Comments patient will be discharged today; patient anticipates recovery; pt expresses that I've had so many people praying for me and that feels so good; daughter of pt, who is main caregiver, had an injury recently and thus pt asks for prayer for her health and recovery too; prayer and presence
--- NOTE | 2022-01-10 15:21 | CASEMGMT ---
Social Work SW in to validate AD with pt. Pt daughter present, spoke for pt as pt not feeling well at this time. SW informed HCPOA and LW documents are not on file with [facility]. Pt's daughter, Shanta, stated pt has HCPOA/LW documents and Shanta will bring in copies of these documents at earliest convenience. DM Meza
[2022-01-10 15:56] VITALS: BMI 38.3
== END 2022-01-10 15:56 | disposition home or self-care (01) ==
LOC: SDC 08:46 → MS3 08:46
PROVIDERS: Anesthesiology; Admitting Provider Specialist; PCP Student in an Organized Health Care Education/Training Program; Referring Provider Specialist; Visit Provider Specialist
PROC: (CPT 23472; principal; 2022-01-09 07:00)
DX: S42.202A Unspecified fracture of upper end of left humerus, initial encounter for closed fracture (principal); Z86.711 Personal history of pulmonary embolism; D62 Acute posthemorrhagic anemia; M19.012 Primary osteoarthritis, left shoulder; W17.2XXA Fall into hole, initial encounter; Y93.9 Activity, unspecified; Y92.9 Unspecified place or not applicable; Z79.82 Long term (current) use of aspirin; Z95.2 Presence of prosthetic heart valve; R06.02 Shortness of breath; R42 Dizziness and giddiness
CPT/HCPCS: 23472; 01638; 64415; 36415; 73030; 80048; 82040; 82962; 83735; 85025; 85027; 87081; 88305; 88311; 93005; 96361; 96365; 96366; 96375; 96376; 97110; 97166; 97535; 99218; 99251; C1776; J7040; J7050; J7120; A4216; G0378; G0463; J3475

== ENCOUNTER → 2023-02-14 | Outpatient (CLI) | payer MEDICARE, SELFPAY ==
--- NOTE | 2023-02-14 12:09 | CT_ITS ---
CT LEFT LOWER EXTREMITY WITH 3-D IMAGING CLINICAL INDICATION: VARUS DEFORMITY, NOT ELSEWHERE CLASSIFIED, LEFT KNEE TECHNIQUE: Axial CT images of the LEFT lower extremity was performed IV contrast material. Coronal and sagittal reformats were provided. RADIATION DOSAGE (If Supplied By Facility): CTDIvol = ( 19.37 ) mGy, DLP = ( 1247.31 ) mGycm COMPARISON: FINDINGS: Bones: Osseous structures are normal without evidence of fracture or dislocation. No lytic or blastic osseous masses. Soft Tissues: The deep soft tissue structures are unremarkable. The superficial soft tissues are unremarkable without evidence of edema, hematoma, or foreign body. CT/Extremity Lower without Contra IMPRESSION: Normal CT evaluation of the lower extremity without evidence of fracture, dislocation, or significant soft tissue abnormality. Pending Final Proof Editing
== END | disposition home or self-care (01) ==
LOC: CT 12:04
PROVIDERS: PCP Student in an Organized Health Care Education/Training Program; Referring Provider Specialist; Visit Provider Specialist
DX: M21.162 Varus deformity, not elsewhere classified, left knee (principal)
CPT/HCPCS: 73700

== ENCOUNTER 2023-03-05 07:20 | Observation (INO) | payer MEDICARE, SELFPAY ==
--- NOTE | 2023-02-14 12:05 | EKG12_ITS ---
Test Reason : PRE OP Blood Pressure : / mmHG Vent. Rate : 078 BPM Atrial Rate : 078 BPM P-R Int : 136 ms QRS Dur : 076 ms QT Int : 366 ms P-R-T Axes : -29 -04 018 degrees QTc Int : 417 ms Normal sinus rhythm Normal ECG Confirmed by CATIA ESCOTO, RAQUEL ([id number]), film or videotape editor RUTH ANN ELIAS ([id number]) on 02/24/2023 7:33:30 AM Referred By: Maldonado Vegas Confirmed By:KYLE BARDALES MD
[2023-02-14 13:51] LABS: Absolute Lymphocyte Count 2.02 X10^3/uL (0.83-4.51); Absolute Neutrophil Count 3.3 X10^3/uL (2.0-7.7); Basophil# 0.02 X10^3/uL; Basophil% 0.3 % (0-1); Eosinophil# 0.08 X10^3/uL; Eosinophils% 1.3 % (0-5); Hematocrit 37.3 % (37-47); Hemoglobin 11.8 g/dL (12.0-15.0); Lymphocyte # 2.02 X10^3/ul (0.83-4.51); Lymphocyte % 33.9 % (19-41); Mean Corp Hgb Conc 31.6 g/dL (32-36); Mean Corpuscular Hgb 29.1 pg (27.0-32.0); Mean Corpuscular Volume 92.1 fL (81-99); Monocyte# 0.56 X10^3/uL; Monocyte% 9.4 % (0-10); NRBC Flagged by Analyzer 0 % (0-5); Neutrophil # 3.27 X10^3/uL (2.7-7.7); Neutrophil % 54.9 % (47-70); Platelet Count 184 K/mm3 (150-450); RBC Distribution Width CV 13.3 % (11.6-14.6); Red Blood Count 4.05 M/mm3 (4.2-5.4)
[2023-02-14 14:24] LABS: Magnesium 2.4 mg/dL (1.6-2.6)
[2023-02-14 14:26] LABS: Albumin, Serum 3.6 g/dL (3.2-5.0); Anion Gap 4 (5-15); BUN 20 mg/dL (7-18); BUN/Creat Ratio 25.7 RATIO (10-20); Calcium,Total 8.7 mg/dL (8.5-10.1); Chloride 107 mmol/L (98-107); Creatinine, Serum 0.78 mg/dL (0.55-1.02); EST Glomerular Filtration Rate 76 mL/min (>60); Est Glom Filt Rate - Afr Amer 92 mL/min (>60); Glucose 87 mg/dL (74-106); Potassium 4.3 mmol/L (3.5-5.1); Sodium Level 138 mmol/L (136-145)
--- NOTE | 2023-02-28 13:08 | HP.PCM_ITS ---
History and Physical History and Physical? Patient Name: Sofía Rodriguez : 1945 From:? EDUARDO MCKENZIE PA-C? DATE OF PRE-OPERATIVE EXAM: 02/26/2023 DATE OF SURGERY:? 03/05/2023 SCHEDULED PROCEDURE:? Left total knee arthroplasty HISTORY OF PRESENT ILLNESS: Preoperative history and physical exam was performed on February 26, 2023.? This is a 77-year-old female who is been having ongoing pain with bilateral knees for over 2 years.? She states the left knee has been worse in the right.? Patient has a past history of reverse total shoulder arthroplasty by Dr. Maldonado Vegas which is she is doing very well.? She has no complaints.? Her pain with the left knee is increased with going up and down stairs, walking, sitting, and standing.? She has pain getting up from a seated position.? Pain is located diffusely throughout the knee.? Pain does not awaken her at night.? She states activities of daily living have been more difficult to achieve including getting dressed and putting on her socks and shoes.? She has tried onse-zbm-rbglidg Tylenol, turmeric, previous nonsteroidal anti-inflammatories.? Patient has been using a cane for ambulatory assistance.? Patient and the family state that she has limited mobility secondary to the knee pain.? She has tried rest, ice, heat without relief.? She denies past history of surgery on bilateral knees.? After failing conservative measures and discussing all treatment options was Dr. Maldonado Vegas, the patient does wish to proceed with a left total knee arthroplasty.? Patient has had perioperative lab work and EKG.? We are obtaining surgical clearance from the primary care physician Dr. Munson.? Patient does have medical history pertinent for previous DVT in 2021 following heart valve repl acement surgery.? She does see a instructor painting Dr. Levin.? Clearance from cardiology has been obtained. She was only on anticoagulation for several months and is no longer on this medication.? Patient denies any chest pain, shortness of breath, fevers chills or recent infections.?? REVIEW OF SYSTEMS: Review Of Systems: Constitutional: Denies change in appetite, fever and weight change. Cardiovasular: Denies chest pain, heart murmur and irregular heartbeat. Respiratory: Denies cough, pneumonia, shortness of breath, tuberculosis and wheezing. Gastrointestinal: Denies constipation, diarrhea, heartburn, nausea, rectal itching, bloody stools and vomiting. Musculoskeletal: Reports gait disturbance, pain, trouble walking and weakness, but denies leg swelling. Skin: Denies Raynaud's, history of shingles and tattoo. Neurological: Reports dizziness but denies ambulatory dysfunction, numbness/tingling and tremor. Psychiatric: Denies anxiety, insomnia and stress. Hematologic/Lymphatic: Reports bleeding/bruising tendency, but denies anemia and past transfusion. Reviewed, no changes. PAST MEDICAL HISTORY: Advance Care Plan: Other Directive, LIVING WILL Effective Date: 12/24/2021 Other Directive, POA Effective Date: 12/24/2021 Past Medical History: Medical Problems: Arthritis DVT - Right leg DVT May 2021 Accidents: LT Shoulder FX - (12/19/2021) [facility] Surgical Hx: Heart Valve Replacement - (2021) SIMONE/CYRUS--LULA Left Reverse Total Shoulder Replacement - (01/09/2022) DR. VEGAS @ [facility] Anesthesia Complications: Can Feel The Work Being Done Assistive Devices: Cane, Dentures, Glasses Reviewed, no changes. SOCIAL HISTORY: Social History: Marital: .Occupation: Retired.Work Status: Retired.Hand Dominance: Right- handed. Personal Habits:? Cigarette Use: Never Smoked Cigarettes.Smokeless Tobacco: Never Used Smokeless Tobacco.E-Cigarette Use: Never used.Alcohol: Denies use.Drug Use: Denies Use.Enjoy Exercising: Daily. Reviewed, no changes. VITALS: Ht: 61 Wt: 205lb 8oz Wt k.215 BMI: 38.8 BP: 118/86 Pulse: 83 T: 96.7 T: 35.9C Pain Level: 3 O2SatR: 96 ALLERGIES: No Known Drug Allergy No Known Substance Allergies? MEDICATIONS: Oxycodone HCL 5 mg 1-2 tablets by mouth every 4 hours, Meloxicam 7.5 mg 1 tablet by mouth twice a day, Zofran 4 mg 1-2 tablets by mouth every 8 as needed nausea, Eliquis 2.5 mg 1 tablet twice a day for 2 weeks post operatively, Famotidine 20 mg 1 by mouth every day, Ferrous Sulfate 325 (65 Fe) MG take 1 tablet by mouth twice a day, Folic Acid 1 mg 1 by mouth every day, Sennosides-Docusate Sodium 8.6-50 mg take until first bowel movement, then as needed, Acetaminophen 325 mg every 6 hours, Aspirin 81 mg daily PRE-OP EXAM:? General appearance:NORMAL? ? ? Other: Eyes: Conjunctivae and lids: NORMAL? Pupils: ERR Ears, Nose, Mouth, and Throat: NORMAL? Other: Inspection of lips, teeth and gums: NORMAL? ?Other: Neck: Examination of neck: no masses noted. Respiratory: Assessment of respiratory effort: NORMAL? ?Other: ?Auscultation of lungs: clear to auscultation no wheezes, rhonchi or rales. Cardiovascular:? Auscultation of heart: regular rate and rhythm, systolic murmur PHYSICAL EXAMINATION: Patient does walk with an antalgic gait with use of cane.? Left knee is without erythema or signs of infection.? She has moderate effusion to the left knee.? There is tenderness to palpation along the medial and lateral joint line.? She has fullness in the posterior knee.? Range of motion: 0 extension to 116 flexion.? She has varus deformity which is only partially correctable on exam.? Stable to anterior/posterior drawer exam with firm endpoint.? Sensation intact to light touch.? Patient's right knee reveals valgus alignment which is correctable on exam.? Range of motion 0 extension to 114 flexion. 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 On the AP view patient has severe hsfd-pi-gomn medial compartment osteoarthritis however on the tunnel view she has severe lateral joint space narrowing.? Patient's right knee reveals severe stage IV osteoarthritis as well. IMPRESSION: 1.? Severe left knee osteoarthritis 2.? Severe right knee osteoarthritis 3.? History of DVT 4.? History of aortic heart valve replacement 2021 5.? Normocytic Anemia PLAN: Dr. Maldonado Vegas did discuss and review with the patient all treatment options including surgical versus nonsurgical options.? Patient does wish to proceed with the above-stated procedure.? Potential risks, benefits, and complications of the procedure were discussed in detail including but not limited to , infection, nerve and blood vessel damage, persistent pain, numbness, tingling, paresthesias, blood clot, pulmonary embolism, and requirement for possible further surgery.? The patient expressed full understanding and has no further questions for the doctor.? Patient does agree to proceed with the above-stated procedure and has signed the surgery consent form. POST-OP MEDICATION PLAN: Pain Medications:? At today's visit patient was given all her postoperative pain medications as her procedure is the day before .? Anticipated discharge will be on and there is concern for access to pharmacy.? Patient was given the following medications: Eliquis, famotidine, meloxicam, oxycodone, and Zofran.? She was instructed to hot die picker aspirin 81 mg, extra strength Tylenol, and senna.? Patient was instructed to not use the meloxicam during the 2 weeks she is taking the Eliquis for DVT prophylaxis.? Medication checklist was given to the patient with all instructions.? Patient was also started on ferrous sulfate and folic acid preoperatively.? She is following Dr. Maldonado Vegas's anemia protocol.? Once clearances were obtained there is history of normocytic anemia and their clearance chart. DVT Prophylaxis: Due to past history of DVT patient will require further anticoagulation due to high risk.? Family states that there is concern with patient taking Xarelto and we have used previously Eliquis on previous surgery.? She was given prescription for Eliquis 2.5 mg take 1 tablet twice daily for 2 weeks following surgery.? After 2 weeks she will begin aspirin 81 mg twice daily for an additional 2 weeks. This dictation was created using voice recognition software. Phonetic and/or grammatical errors may exist. ___? I have re-examined the patient.? There are no clinical changes since date of exam. ___? See progress notes for changes. ___? Dictated on admission Date: ? ? ?Time: Signature:
--- NOTE | 2023-03-04 07:30 | BON_PTH ---
PATIENT: SUSAN MOSQUEDA LOC: MS3 U#:[id number] AGE/SX: 77/F ROOM: [facility] RE03/05/[address]: Dr. Maldonado Vegas MD : 1945 BED: 1 DIS: 03/06/2023 SPEC #: [id number] RECD: 03/05/23 12:05 STATUS: DL BOOTHEChris #: [id number] YASMIN: 03/04/23 07:[address]: Maldonado Vegas DEPT: SURGICAL PATHOLOGY RECD BY: Alla Tam ENTERED: 03/05/23 12:05 SP TYPE: Bone OTHR DR: Dr. Demetri Munson DO Tissues: Knee, NOS Procedures: Decalcification bone/plaque Surgery Specimen Level IV HEADER OPERATION: ERAS, total knee replacement robotic arm assist PRE-OP DIAGNOSIS: Severe left knee osteoarthritis TISSUE SUBMITTED: Left knee bone and soft tissue MICROSCOPIC DIAGNOSIS Bone and tissue of left knee, total knee resection: Severe degenerative joint disease. Mild synovial hyperplasia and associated mild chronic inflammation. AM:sasha 03/12/2023 MICROSCOPIC DESCRIPTION Slides are reviewed. GROSS DESCRIPTION Received is one container designated bone and tissue of left knee. The specimen consists of multiple fragments of branham-yellow bone measuring in aggregate 15.0 x 13.0 x 1.5 cm. Also in the specimen container are multiple fragments of yellow-white soft tissue measuring in aggregate 5.0 x 4.5 x 1.0 cm. A number of bony fragments contain articular surfaces consistent with tibial plateau and femoral condyle and displaying prominent osteophyte formation, eburnation and bone erosion. Shot Core Drill Operator Helper sections are submitted in two cassettes as follows: 1 - soft tissue, 2 - bone after decalcification. / AM:sasha 03/05/2023 TC:3 CPT: 10183, 89174
[2023-03-05] VITALS (12 sets, daily range): BP systolic 106–160; BP diastolic 58–93; PULSE 77–96; RESP 10–20; TEMP 36.1–37; O2SAT 94–100; BMI 38.4
[2023-03-05] MEDS: Lactated Ringers 1,000 ML 999 ML IV ×2 (06:09→09:30)
[2023-03-05] MEDS: Magnesium 1 GM over 15 mins IV (06:10)
[2023-03-05] MEDS: Acetaminophen 500 MG Tablet 1000 MG PO ×3 (06:36→21:34)
[2023-03-05 06:37] LABS: Bedside Glucose 84 mg/dL (74-106)
[2023-03-05] MEDS: Celecoxib 200 MG Capsule 400 MG PO (06:37)
[2023-03-05] MEDS: Gabapentin 600 MG Tablet PO (06:37)
--- NOTE | 2023-03-05 07:18 | PCM.OPRPT ---
Report of Operation Date of Procedure: 03/05/23 Pre-Operative Diagnosis: Left knee primary osteoarthritis Post-Operative Diagnosis: Left knee primary osteoarthritis Surgery/Procedure Performed:: Left knee minimally invasive robotic assisted total knee replacement Description of Surgical Findings:: Stable knee with good patella tracking Surgeon: Maldonado Vegas sports medicine coordinator: Kel Franklin sports medicine coordinator: Alonzo Mcdaniel Type of Anesthesia: Spinal Anesthesiologist: Zack Santos Special Medications: 2 g Ancef, 1 g TXA at incision, 1 g TXA closure, 10 mg Decadron, joint cocktail (5 mg Duramorph, 30 mL of 0.5% Ropivicaine, 1000 units of epinephrine, 30 mg of Toradol) Specimen's removed: Bony cuts Estimated Blood Loss (mL): 400 Fluids Replaced: 1500 ML Description of Procedure: Implants used: 1. Green size 5 triathlon cruciate retaining distal femoral press-fit component 2. Bonifacio size 5 press-fit tritanium tibial baseplate 3. Bonifacio X3 9 mm CS polyethylene 4. Green X3 35 mm asymmetric patella Brief history operative indications: 77-year-old F with history of left knee osteoarthritis with radiographic findings with loss of joint space, osteophyte formation and subchondral sclerosis. Failed conservative measures as mentioned in the H&P. Discussion of total knee arthroplasty as well as risk and benefits were discussed the patient including but not limited to blood loss, DVTs, PEs, neurovascular damage, general risk of anesthesia including loss of life, and stiffness or instability were discussed with patient. Patient demonstrated understanding and was able to sign informed consent. Procedure: On the date of procedure patient's left lower extremity was marked in the preoperative area. The patient was then taken back to the operating room where the patient was placed on the table in the supine position. All bony prominences were identified a well-padded. Anesthesia assumed control of the C-spine and airway and remained controlled throughout the remainder of the procedure. A tourniquet was placed on the left upper thigh and the leg was prepped in a sterile fashion. The surgeon then scrubbed at this time .Upon reentering the room left lower extremity was draped in a standard orthopedic fashion. A timeout was then called and everyone agreed upon the side, the site, the procedure to be performed, patient's identity and antibiotics given. Esmarch bandage was used to exsanguinate the extremity and the tourniquet was placed up to 250 mmHg with the knee in flexion. A midline skin incision was made and sharp dissection was taken down through skin subcutaneous tissue and fat. The standard medial parapatellar incision was made and the patella was subluxed laterally. An Appropriate deep MCL release was done and the fat pad was resected. Our attention was then directed to the patella. The patella was everted and a flat resection was made. The knee was then flexed up in 2 femoral pins were placed inside the incision and 2 tibial pins were placed outside the incision in the medial tibia bicortically. Once this was completed the 2 checkpoints in the femur and tibia were placed. Knee was then flexed up and the bony landmarks were registered. Once this was completed knee was taken through range of motion and manually stressed allowing us to a plan for an appropriate tibial cut. The robotic arm was brought into the field sterilely and checkpoint and saw were registered. Based on the patient's deformity the tibial cut was made in 3 degrees of varus. At this time the tensioner was then placed in the joint and ligament tension was checked at 90 degrees and full extension. Based on the patient's ligamentous tension appropriate adjustments were made to the operative plan and ligament releases were done. Once we were happy with our operative plan with balanced flexion and extension gaps our attention was directed to the femur. The robot was brought into the field sterilely and registered. Posterior condylar cuts, anterior chamfer cuts and anterior cuts were appropriately made for a size 5 femur. When these were completed the saws were switched out in the distal femoral and posterior chamfer cuts were made. Protecting the soft tissue throughout this time. A size 5 tibial base plate was selected. the knee was flexed to 90 degrees and the soft tissues and posterior osteophytes were removed from the joint. 40 cc of the periarticular injection was injected into the posterior medial corner of the joint. The appropriate trials were then placed on the femur and tibia. A trial polyethylene was trialed to ensure proper balancing and stability of the knee. The appropriate tibial internal rotation was then marked with a bovie. Our attention was then directed to the patella. The lug holes were drilled and the patella trial was placed. Patellar tracking was checked and deemed appropriate. Once we were happy lug holes were drilled for the femur and trial components were removed. the tibia was subluxed and pinned into place and the keel was punched and drilled appropriately. Final components were verified and opened, and cement was mixed in a vacuum. Green Simplex cement was used. The wound was copiously irrigated with normal saline. When the cement was ready the components were impacted into place starting with the tibia, femur and finally cementing the patella. The trial poly component was placed and the knee was placed in full extension. All excess cement was removed in the process. Once the cement had cured the tracking, alignment and balance were verified and a size 9 mm CS polyethylene component was placed. Once the final components were placed a 3-minute dilute Betadine lavage was performed followed by an Irrisept lavage was performed and the wound was copiously irrigated with normal saline solution and the periarticular injection was given. The wound was closed in a layer hdz fashion using #1 vicryl interrupted sutures for the arthrotomy, 2-0 interrupted Vicryl suture for the subcuticular layer and sahina for final skin closure. A sterile compressive dressing was then placed. The patient was then awakened from anesthesia, transferred to the [facility] and transferred to the PACU for recovery. Post op plan DVT ppx: Eliquis 2.5 mg p.o. twice daily for 2 weeks followed by ASA 81mg BID, thigh high compression stockings Follow up: in office in 2 weeks for wound check PT: to start POD #0 at hospital, outpatient PT should be arranged. My physician photography assistant was a vital part of this case. He was important in appropriate retraction during the case, and protection of soft tissues during bony cuts. His intimate knowledge of the case and my steps aided in safe and expedient completion of the procedure as well as appropriate position of the leg during the case. He was also vital in assisting with closure under my direct supervision. Due to the complexity of this case robotic arm was used to assist in the surgery to improve accuracy and clinical outcomes. Complications No intraoperative complications Admit VTE Documentation VTE Present on Admission: No VTE Mechan Device Prophylaxis: SCD's and Thigh High ESAU Hose VTE Pharm Prophylaxis ordered?: Yes
[2023-03-05] MEDS: Cefazolin 2 GM in 0.9% Normal Saline (100mL Bag) 100 ML IV (07:22)
[2023-03-05] MEDS: TXA 1000mg in NS100 100ml (IVPB at Incision) 660 MG IV (07:30)
[2023-03-05] MEDS: JPS (Morphine 10mg/ml) OPERA.SITE (07:49)
[2023-03-05] MEDS: TXA 1000mg in NS100 100ml (IVPB at Closure) 660 MG IV (08:45)
--- NOTE | 2023-03-05 09:30 | RAD_ITS ---
STUDY: X-RAY - LEFT KNEE REASON FOR EXAM: Female, 77 years old. Post op -- AP and Lateral xray of operative knee in PACU. TECHNIQUE: 2 views of the left knee. COMPARISON: None. FINDINGS: There are new postoperative changes related to left total knee arthroplasty with patellar resurfacing. There is a vertical staple line along the anterior aspect of the knee. There is gas in the patellofemoral joint recess and anterior soft tissues, compatible with recent surgery. The orthopedic hardware components are intact. There is no periprosthetic fracture. Normal proximal tibiofibular articulation. RAD/Knee 1 or 2 Views IMPRESSION: New postoperative changes related to left total knee arthroplasty. Electronically Signed: Reagan Caballero MD at 9:54 EST ,
[2023-03-05] MEDS: Lactated Ringers 1,000 ML 70 ML IV (10:14)
[2023-03-05] MEDS: Cefazolin 1 GM/50 ML BAG IV ×2 (15:22→22:27)
[2023-03-05] MEDS: oxyCODONE 5 MG Tablet PO (17:45)
--- NOTE | 2023-03-05 20:12 | PCM.PN.HOSP ---
Reason for Visit Reason for Visit: Diagnoses Encounter for preprocedural cardiovascular examination (03/05/23) Encounter for other preprocedural examination (03/05/23) Subjective Subjective 77-year-old female history of bilateral knee pain for 2 years left worse than right with an additional history of a reverse total shoulder arthroplasty which has been doing well who presented to [facility] 03/05/2023 for left knee minimally invasive robotic assisted total knee replacement. Patient tolerated this well and medicine was consulted postoperatively for medication management. Aside from her joint problems patient only takes an aspirin at home. She was seen at bedside with family present in she reports her pain is a 3 out of 10 and that overall she feels well and has no other complaints. Objective Data Objective Data Vital Signs: Vital Signs Temp Pulse Resp BP Pulse Ox O2 Del Method O2 Flow Rate 98.2 F 83 20 H 144/84 H 95 Room Air 2 03/05/23 16:52 03/05/23 16:52 03/05/23 16:52 03/05/23 16:52 03/05/23 16:52 03/05/23 16:52 03/05/23 12:52 Oxygen Flow Rate (L/min) 2 Oxygen Delivery Method Room Air Weight: 94.7 kg Body Mass Index (BMI) 38.4 Intake & Output: Intake and Output for Last 24 Hours 03/03/23 03/04/23 03/05/23 23:59 23:59 23:59 Intake Total 3347.17 / 3347.17 Output Total 600 / 600 Balance 2747.17 / 2747.17 Lab / Micro Data 02/14/23 12:34 02/14/23 12:34 Labs: Laboratory Results - last 24 hr 03/05/23 06:18: POC Glucose 84 Micro: Microbiology 02/14/23 12:34 Swab (Method) Nasal Screen MRSA/MSSA - Final Radiography Diagnostic Testing: Radiology Impression Knee X-Ray 03/05/23 09:30 IMPRESSION: New postoperative changes related to left total knee arthroplasty. Electronically Signed: Reagan Caballero MD at 9:54 EST , Physical Exam Narrative General: Alert, oriented, no apparent distress HEENT: Atraumatic, normocephalic Eyes: Anicteric, normal conjunctiva, extraocular movements grossly intact Neck: Supple Respiratory: Clear to auscultation bilaterally, normal respiratory effort Cardiovascular: Regular rate and rhythm GI: Soft, nontender, nondistended Extremities: No edema Musculoskeletal: Moving all extremities Neuro: No overt focal neurological deficits Skin: No rashes appreciated Psych: Cooperative Assessment & Plan Assessment/Plan (1) Knee pain: PLAN: Plan #Left-sided knee osteoarthritis -Status post left knee minimally invasive robotic assisted total knee replacement -Patient on scheduled Tylenol and Mobic with additional as needed medications -Management per primary DVT prophylaxis: Patient on Eliquis Patient with no additional medical problems, hospitalist will sign off. Please renotify if needed Charges/Coding Visit Charges Inpatient E&M: 94907 Subs Hosp L1
[2023-03-05] MEDS: Senna/Docusate Sodium 1 Tablet 2 TABLET PO (21:34)
[2023-03-06 04:00] VITALS: BP 138/62; PULSE 71; RESP 18; TEMP 36.8; O2SAT 98
[2023-03-06] MEDS: oxyCODONE 5 MG Tablet PO (04:46)
[2023-03-06] MEDS: Acetaminophen 500 MG Tablet 1000 MG PO (04:46)
[2023-03-06 06:27] LABS: Hematocrit 29.5 % (37-47); Hemoglobin 9.4 g/dL (12.0-15.0); Mean Corp Hgb Conc 31.9 g/dL (32-36); Mean Corpuscular Hgb 29.3 pg (27.0-32.0); Mean Corpuscular Volume 91.9 fL (81-99); Mean Platelet Vol. 10.5 fl (6.2-12.0); Platelet Count 133 K/mm3 (150-450); RBC Distribution Width CV 13.4 % (11.6-14.6); RBC Distribution Width SD 45.4 fl (35.1-43.9); Red Blood Count 3.21 M/mm3 (4.2-5.4); White Blood Count 7.2 K/mm3 (4.4-11.0)
[2023-03-06 06:54] LABS: Anion Gap 3 (5-15); BUN 30 mg/dL (7-18); BUN/Creat Ratio 35.1 RATIO (10-20); Calcium,Total 8.1 mg/dL (8.5-10.1); Chloride 110 mmol/L (98-107); Creatinine, Serum 0.85 mg/dL (0.55-1.02); EST Glomerular Filtration Rate 68 mL/min (>60); Est Glom Filt Rate - Afr Amer 82 mL/min (>60); Glucose 99 mg/dL (74-106); Potassium 4.2 mmol/L (3.5-5.1); Sodium Level 139 mmol/L (136-145)
[2023-03-06] MEDS: Ferrous Sulfate 325 MG Tablet PO (08:08)
[2023-03-06] MEDS: Aspirin E.C. 81 MG Tablet PO (08:08)
[2023-03-06] MEDS: Folic Acid 1 MG Tablet PO (08:08)
[2023-03-06] MEDS: 0.9% Saline Lock 10 ML Syringe IV (08:30)
[2023-03-06] MEDS: Ensure Surgery 237 ML LIQUID PO (08:30)
[2023-03-06 08:33] VITALS: BP 148/55; PULSE 66; RESP 18; TEMP 36.9; O2SAT 95
--- NOTE | 2023-03-06 08:46 | PN.ORTHO_ITS ---
Subjective Subjective 77-year-old female presents today status post 1 day from left total knee replacement. Patient doing well overall. Reports good pain control. Daughter is at bedside. Due to the holiday there is no therapy scheduled for today. Family understood this going into today and patient has good support at home. No chest pain or shortness of breath. No acute events overnight reported by nursing. Objective Data Objective Data Vital Signs: Vital Signs Temp Pulse Resp BP Pulse Ox O2 Del Method O2 Flow Rate 98.5 F 66 18 148/55 H 95 Room Air 2 03/06/23 08:33 03/06/23 08:33 03/06/23 08:33 03/06/23 08:33 03/06/23 08:33 03/06/23 08:33 03/05/23 12:52 Oxygen Flow Rate (L/min) 2 Oxygen Delivery Method Room Air Weight: 208 lb 12.444 oz Body Mass Index (BMI) 38.4 Intake & Output: Intake and Output for Last 24 Hours 03/04/23 03/05/23 03/06/23 23:59 23:59 23:59 Intake Total 3754.34 / 3754.34 50 / 50 Output Total 1100 / 1100 150 / 150 Balance 2654.34 / 2654.34 -100 / -100 Lab / Micro Data Attestation: I reviewed the patient's lab results. 03/06/23 06:05 03/06/23 06:05 Labs: Laboratory Results - last 24 hr 03/06/23 06:05: WBC 7.2, RBC 3.21 L, Hgb 9.4 L, Hct 29.5 L, MCV 91.9, MCH 29.3, MCHC 31.9 L, RDW Std Deviation 45.4 H, RDW Coeff of [place] 13.4, Plt Count 133 L, MPV 10.5, Sodium 139, Potassium 4.2, Chloride 110 H, Carbon Dioxide 26.0, Anion Gap 3 L, BUN 30 H, Creatinine 0.85, Estim Creat Clear Calc 40.50, Est GFR (MDRD) Af Amer 82, Est GFR (MDRD) Non-Af 68, BUN/Creatinine Ratio 35.1 H, Glucose 99, Calcium 8.1 L Micro: Microbiology 02/14/23 12:34 Swab (Method) Nasal Screen MRSA/MSSA - Final Radiography Diagnostic Testing: Radiology Impression Knee X-Ray 03/05/23 09:30 IMPRESSION: New postoperative changes related to left total knee arthroplasty. Electronically Signed: Reagan Caballero MD at 9:54 EST , Physical Exam Const alert, oriented x3 and no apparent distress Resp normal respiratory effort Extremity Extremity Narrative: Left lower extremity: Dressing is clean dry and intact Sensations intact to light touch saphenous, sural, superficial peroneal, deep peroneal, and tibial distributions Motors intact EHL, DF, PF calves are soft and supple Assessment & Plan Assessment/Plan (1) Status post total knee replacement, left: PLAN: Postop day 1 left total knee replacement 1. DVT prophylaxis: Eliquis 2.5 mg 1 tablet twice a day for 2 weeks followed by aspirin 81 mg p.o. twice daily for 2 weeks 2. Pain control: Patient doing well on Tylenol and oxycodone will be discharged on these medications 3. Anemia: Patient presented with chronic anemia. She was started on ferrous sulfate and folic acid preoperatively. She will continue with this. She was again encouraged to follow-up with her primary care physician for long-term management of chronic anemia. Based on age this may be her chronic state. Current decrease in hemoglobin related to intraoperative blood loss. 4. Therapy: Due to the holiday there is reportedly no therapy being offered. Family is aware and would like to continue with discharge today. Family is very supportive and patient does have home exercise program set up at home to begin therapy today throughout the weekend at [facility]. Patient will progress with standard postop total knee regimen. 5. Dressing: Lower pin site dressing was saturated this morning will be removed and replaced with a occlusive dressing again today. Discussed with family dressing changes at home. Discussed that main dressing should be removed after postoperative 5. If she does have excessive saturation we will transition her to a dry dressing. Did membership counselor patient and her family on how to change dry dressing encouraged to call the on-call service if there are any questions. 6. Disposition: Patient is doing well and stable. Will plan for discharge today. Patient has home exercise program at home. DVT prophylaxis, stool softeners and anemia regimen were again reiterated family demonstrated understanding as well as patient. Patient was encouraged to continue with therapy at home. Dressing change was also discussed with patient and family and understanding was relayed. Patient will follow-up in the office in 2 weeks as previously scheduled. She is scheduled to begin physical therapy on Friday, March 10. [facility] Office: (2) Osteoarthritis of left knee:
--- NOTE | 2023-03-06 08:55 | DCINST_ITS ---
Discharge Instructions Diet Discharge Diet: No restrictions Activity Discharge Activity: May Not Drive May shower in (days): 2 Ice area for (Minutes): 20 (every hour while awake.) Weight Bearing Status: Weight bearing as tolerated Keep extremity elevated above heart level: Operative Extremity Additional Activity Instructions:: Wear elastic stockings for 2 weeks after your surgery. Dressing / Incision Call your doctor if your incision/area has: Continuous Slow Oozing, Sudden Increased Bleeding, Increased Pain/ Swelling, Increased Redness and Foul Smelling Discharge Call your doctor if you observe: Fever of 101 or Higher, Coldness, Increased Pain, Numbness or Tingling, Change in Color, Calf discomfort and Uncontrolled pain Remove Dressing in: 5 days (5 days from surgery. Friday03/10/2023) Additional Dressing/Incision Instructions:: If incision is clean dry and intact may leave the wound open to air and continue showering. If there is continued drainage continue daily dry dressing changes and keep incision clean dry and intact until there is no drainage. Follow Up Care Please Follow Up With: Kel Franklin PA-C When: 03/21/2023 at 9 AM Test Results: Test results from this visit will be discussed in further detail at your follow- up appointment, if applicable. Chronic anemia was discussed with patient patient was encouraged to follow-up with primary care physician for chronic management. Discharge Plan Admission Admit Date/Time: 03/05/23 07:20 Primary Reason for Your Visit: L TKA Attending Provider: Maldonado Vegas Primary Care Provider: Demetri Munson Consulting Providers: Ely Conley; Lucina Caballero Discharge Orders/Prescriptions Prescriptions: New ferrous sulfate [FeroSul] 325 mg (65 mg iron) Tablet 325 mg PO DAILYCM Qty: 0 0RF acetaminophen 500 mg Tablet 1,000 mg PO Q8 Qty: 0 0RF Eliquis 5 mg Tablet 2.5 mg PO BID Qty: 0 0RF Ensure Surgery 0.08-1.4 gram-kcal/mL Liquid 237 ml PO TIDCM Qty: 0 0RF sennosides-docusate sodium [Stool Softener-Stimulant Laxat] 8.6-50 mg Tablet 2 tab PO BID Qty: 0 0RF meloxicam 7.5 mg Tablet 7.5 mg PO BID Qty: 0 0RF famotidine 20 mg Tablet 20 mg PO DAILY Qty: 0 0RF oxycodone 5 mg Tablet 5 - 10 mg PO Q4H PRN PRN (Reason: Pain Score 4-10) Qty: 0 0RF ondansetron HCl (PF) 4 mg/2 mL Solution 4 mg IV Q8H PRN PRN (Reason: NAUSEA) Qty: 0 0RF Continued aspirin 81 mg tablet,delayed release (DR/EC) 81 mg PO DAILY Patient Comments: TAKE 1 TABLET BY MOUTH ONCE DAILY folic acid 1 mg tablet Discontinued garlic 1 mg Capsule 1 mg PO DAILY red yeast rice 600 mg Tablet 600 mg PO DAILY Rx Instructions: give with meal/snack sennosides [Natural Senna Laxative] 8.6 mg tablet 8.6 mg PO DAILY No Action iron tablet 1 tab PO DAILY Patient Comments: unknown strength Referrals / Follow Up: Demetri Munson DO [Primary Care Provider] - Disposition Disposition (needs filled in before D/C Order can be placed): Home, Self Care
== END 2023-03-06 10:55 | disposition home or self-care (01) ==
LOC: SDC 11:55 → MS3 11:55
PROVIDERS: Anesthesiology; Admitting Provider Specialist; PCP Student in an Organized Health Care Education/Training Program; Referring Provider Specialist; Visit Provider Specialist
PROC: 0SRD0JZ Replacement of Left Knee Joint with Synthetic Substitute, Open Approach (ICD-10-PCS; CPT 27447; principal; 2023-03-05 07:00)
DX: M17.0 Bilateral primary osteoarthritis of knee (principal); Z86.718 Personal history of other venous thrombosis and embolism; Z95.2 Presence of prosthetic heart valve; Z79.899 Other long term (current) drug therapy; Z79.01 Long term (current) use of anticoagulants; D64.9 Anemia, unspecified
CPT/HCPCS: 27447; S2900; 01402; 36415; 73560; 80048; 82040; 82962; 83735; 85025; 85027; 87081; 88305; 88311; 93005; 94668; 96365; 96366; 97162; 97166; 99221; 99252; C1776; J7120; A4216; G0378; G0463; J2405; J3475

== ENCOUNTER → 2024-10-29 | Outpatient (CLI) | payer MEDICARE, SELFPAY ==
[2024-10-29 13:07] LABS: AST(SGOT) 18 U/L (<=31); Alanine Aminotransfer ALT/SGPT 12 U/L (<=34); Albumin, Serum 4.3 g/dL (3.4-4.8); Alkaline Phosphatase 102 U/L (35-104); Anion Gap 11 (5-15); BUN 21 mg/dL (4-19); BUN/Creat Ratio 25.7 RATIO (10-20); Calcium,Total 9.2 mg/dL (7.6-11.0); Carbon Dioxide 23.2 mmol/L (21.0-32.0); Chloride 103 mmol/L (98-108); Cholesterol 216 mg/dL (<=200); Ferritin 162 ng/mL (22-378); Globulin 3.0 g/dL (2.2-4.2); Glucose 101 mg/dL (70-99); Low Density Lipoprotein Calc. 144 mg/dL; Potassium 4.3 mmol/L (3.3-5.1); Triglycerides 90 mg/dL; Very Low Density Lipoprotein 18 mg/dL (5-40); Vitamin D,25 Hydroxy 14.0 ng/mL (30-100); cholesterol:hdl ratio screen 4.03
[2024-10-29 13:25] LABS: Iron 54 ug/dL (50-170); Iron Binding Capacity,Total 287 ug/dL (250-450); Iron Binding Capacity,Unsat 233 ug/dL (228-428); Magnesium 2.2 mg/dL (1.5-2.2)
[2024-10-29 20:24] LABS: Hematocrit 37.0 % (37-47); Hemoglobin 12.2 g/dL (12.0-15.0); Immature Granulocytes Count 0.010 X10^3/uL (0.0-0.0); Mean Corp Hgb Conc 33.0 g/dL (32-36); Mean Corpuscular Volume 89.2 fL (81-99); Mean Platelet Vol. 11.3 fl (6.2-12.0); NRBC Flagged by Analyzer 0 % (0-5); Platelet Count 182 K/mm3 (150-450); RBC Distribution Width CV 13.4 % (11.6-14.6); RBC Distribution Width SD 44.0 fl (35.1-43.9); Red Blood Count 4.15 M/mm3 (4.2-5.4); White Blood Count 5.1 K/mm3 (4.4-11.0)
[2024-11-02 06:07] LABS: Zinc, Plasma or Serum 79 ug/dL (44-115)
== END | disposition home or self-care (01) ==
LOC: MFPLAB 10:12
PROVIDERS: PCP Student in an Organized Health Care Education/Training Program; Referring Provider Family Medicine; Visit Provider Family Medicine
DX: Z13.1 Encounter for screening for diabetes mellitus (principal); R53.83 Other fatigue; Z13.220 Encounter for screening for lipoid disorders; E61.1 Iron deficiency; R60.9 Edema, unspecified; E55.9 Vitamin D deficiency, unspecified
CPT/HCPCS: 36415; 80053; 80061; 82306; 82728; 83036; 83540; 83550; 83735; 84443; 84630; 85025